=== PATIENT | female | born 1965 | race Caucasian/White ===

== ENCOUNTER 2018-07-05 09:45 | Outpatient (CLI) | payer BC ==
--- NOTE | 2018-07-05 13:42 | MMO ---
Bilateral MAMMO Bilat Screen [facility]. CLINICAL HISTORY: Patient is 53 years old and is seen for screening. The patient has no family history of breast cancer. The patient has no personal history of cancer. VIEWS: The views performed were: bilateral craniocaudal with tomosynthesis and bilateral mediolateral oblique with tomosynthesis. FILMS COMPARED: The present examination has been compared to prior imaging studies performed at [facility] on 07/03/2008, 09/04/2014 and 02/26/2016. MAMMOGRAM FINDINGS: The breasts are heterogeneously dense, which could obscure a lesion on mammography. There are benign appearing calcifications seen in both breasts. There are no suspicious masses, calcifications or areas of architectural distortion. IMPRESSION: CALCIFICATIONS IN BOTH BREASTS ARE BENIGN. A ROUTINE FOLLOW-UP MAMMOGRAM IN 1 YEAR IS RECOMMENDED. THE RESULTS OF THIS EXAM WERE SENT TO THE PATIENT. ACR BI-RADS Category 2 - Benign finding MAMMOGRAPHY NOTE: 1. A negative mammogram report should not delay a biopsy if a dominant of clinically suspicious mass is present. 2. Approximately 10% to 15% of breast cancers are not detected by mammography. 3. Adenosis and dense breasts may obscure an underlying neoplasm.
== END 2018-07-05 09:46 | disposition home or self-care (01) ==
LOC: BICMAMMO 09:45
PROVIDERS: ATTEND Obstetrics & Gynecology
DX: Z12.31 Encounter for screening mammogram for malignant neoplasm of breast (principal)
CPT/HCPCS: 77063; 77067

== ENCOUNTER 2019-11-21 14:48 | Outpatient (CLI) | payer BC ==
--- NOTE | 2019-11-21 16:02 | MMO ---
Bilateral MAMMO Bilat Screen [facility]. CLINICAL HISTORY: Patient is 54 years old and is seen for screening. The patient has no family history of breast cancer. The patient has no personal history of cancer. VIEWS: The views performed were: bilateral craniocaudal with tomosynthesis and bilateral mediolateral oblique with tomosynthesis. FILMS COMPARED: The present examination has been compared to prior imaging studies performed at [facility] on 07/03/2008, 09/04/2014, 02/26/2016 and 07/05/2018. This study has been interpreted with the assistance of computer-aided detection. MAMMOGRAM FINDINGS: The breasts are heterogeneously dense, which could obscure a lesion on mammography. Benign calcifications are noted bilaterally. There are no suspicious masses, suspicious calcifications, or new areas of architectural distortion. IMPRESSION: THERE IS NO MAMMOGRAPHIC EVIDENCE OF MALIGNANCY. A ROUTINE FOLLOW-UP MAMMOGRAM IN 1 YEAR IS RECOMMENDED. THE RESULTS OF THIS EXAM WERE SENT TO THE PATIENT. ACR BI-RADS Category 2 - Benign finding MAMMOGRAPHY NOTE: 1. A negative mammogram report should not delay a biopsy if a dominant of clinically suspicious mass is present. 2. Approximately 10% to 15% of breast cancers are not detected by mammography. 3. Adenosis and dense breasts may obscure an underlying neoplasm. Reported by: RAY MCDOWELL MD Electonically Signed: [id number]
== END 2019-11-21 14:49 | disposition home or self-care (01) ==
LOC: BICMAMMO 14:48
PROVIDERS: ATTEND Obstetrics & Gynecology
DX: Z12.31 Encounter for screening mammogram for malignant neoplasm of breast (principal)
CPT/HCPCS: 77063; 77067

== ENCOUNTER 2020-12-17 12:34 | Outpatient (CLI) | payer BC | END 2020-12-17 12:35 | disposition home or self-care (01) | LOC: BICMAMMO 12:34 | PROVIDERS: ATTEND Obstetrics & Gynecology | DX: Z12.31 Encounter for screening mammogram for malignant neoplasm of breast (principal) | CPT/HCPCS: 77063; 77067 ==

== ENCOUNTER 2021-02-21 07:49 | Inpatient (IN) | payer BC ==
[2021-02-21] MEDS ORDERED: Morphine 4 MG/ML VIAL ONE ×3 (08:21→11:45)
[2021-02-21] MEDS ORDERED: Ondansetron PF 4 MG/2 ML Vial ONE (08:21)
[2021-02-21] MEDS ORDERED: Pantoprazole 40 MG VIAL ONE (08:21)
[2021-02-21 08:53] LABS: #Basophils 0.1 thou/uL (0.0-0.2); #Lymphocytes 1.5 thou/uL (1.20-3.40); #Monocytes 0.5 thou/uL (0.11-0.59); #Neutrophils 6.3 thou/uL (1.40-6.50); %Basophils 0.6 % (0.0-1.0); %Eosinophils 0.4 % (0.0-10.0); %Lymphocytes 18.3 % (21.0-51.0); %Monocytes 5.5 % (0.0-10.0); %Neutrophils 75.3 % (42.0-75.0); Hemoglobin 15.3 g/dL (12.0-16.0); Mean Corpuscular HGB CONC 35.1 g/dL (32.0-36.0); Mean Corpuscular Volume 94.1 fL (78.0-98.0); Mean Platelet Volume 7.8 fL (7.4-10.4); Platelet Count 214 thou/uL (130-400); RBC Distribution Width 11.3 % (11.5-14.5); Red Blood Cell (RBC) Count 4.63 mill/uL (4.20-5.40); White Blood Cell (WBC) Count 8.3 thou/uL (4.8-10.8)
[2021-02-21] MEDS ORDERED: Iopamidol-370 76% 500 ML 1 ML ONE (09:11)
[2021-02-21 09:13] LABS: Albumin 4.7 g/dL (3.5-5.0); Anion Gap 14 mmol/L (10-20); BUN (Urea Nitrogen) 16 mg/dL (9.8-20.1); Bilirubin, Total 0.9 mg/dL (0.2-1.2); Calc. Creatinine Clearance 0 mL/min (70-130); Calcium 10.5 mg/dL (7.8-10.44); Carbon Dioxide 28 mmol/L (22-29); Chloride 102 mmol/L (98-107); Glucose 123 mg/dL (70-105); Potassium 3.9 mmol/L (3.5-5.1); Protein, Total 7.2 g/dL (6.0-8.3); Sodium 140 mmol/L (136-145)
[2021-02-21 09:14] LABS: ALT (SGPT) 18 U/L (8-55); AST (SGOT) 15 U/L (5-34); Alkaline Phosphatase 66 U/L (40-110); CK (CPK) 40 U/L (29-168); Globulin 2.5 g/dL (2.4-3.5); Lipase 40 U/L (8-78)
[2021-02-21] MEDS ORDERED: Acetaminophen 325 MG TAB PO PRN (09:53)
[2021-02-21 10:55] LABS: Bacteria/HPF None Seen HPF (None Seen); Bilirubin Negative (Negative); Blood, Urine Negative (Negative); Clarity Clear (Clear); Glucose, Urine (Dipstick) Normal (Negative); Ketone, Urine Negative (Negative); Leukocyte Negative Leu/uL (Negative); Nitrite Negative (Negative); Protein, Urine (Dipstick) Negative (Neg-Trace); RBC/HPF 0-3 HPF (0-3); Squamous Epithelial 0-3 HPF (0-3); Urobilinogen Normal mg/dL (Less than 2); WBC/HPF 0-3 HPF (0-3); pH, Urine 6.5 (5.0-9.0)
[2021-02-21 10:58] LABS: Specific Gravity, Urine 1.044 (1.002-1.036)
[2021-02-21 10:59] LABS: Urine Culture Reflex No No
[2021-02-21 12:47] VITALS: BMI 24.3
[2021-02-21] MEDS: Dextrose 5 %-0.45 % NaCl 1,000 ML IV SCH ×2 (13:17→20:47)
[2021-02-21] MEDS: Ondansetron PF 4 MG/2 ML Vial IVP PRN ×2 (13:19→19:32)
[2021-02-21] MEDS: Acetaminophen 650 MG Suppository PR PRN ×2 (19:31→20:03)
[2021-02-21] MEDS: Famotidine/PF 20 mg/2ml Vial SLOW IVP SCH (23:48)
[2021-02-22] MEDS: Acetaminophen 650 MG Suppository PR PRN ×2 (01:17→08:15)
[2021-02-22] MEDS: Ondansetron PF 4 MG/2 ML Vial IVP PRN (01:24)
[2021-02-22] MEDS: Morphine 4 MG/ML VIAL SLOW IVP PRN ×3 (03:05→20:49)
[2021-02-22 06:24] LABS: #Eosinphils 0.1 thou/uL (0.0-0.7); #Lymphocytes 1.6 thou/uL (1.20-3.40); #Monocytes 0.7 thou/uL (0.11-0.59); #Neutrophils 6.8 thou/uL (1.40-6.50); %Basophils 0.4 % (0.0-1.0); %Eosinophils 0.6 % (0.0-10.0); %Lymphocytes 17.7 % (21.0-51.0); %Monocytes 7.3 % (0.0-10.0); Hemoglobin 14.5 g/dL (12.0-16.0); Mean Corpuscular HGB CONC 32.9 g/dL (32.0-36.0); Mean Corpuscular Hemoglobin 31.7 pg (27.0-31.0); Mean Corpuscular Volume 96.4 fL (78.0-98.0); Mean Platelet Volume 8.1 fL (7.4-10.4); Platelet Count 193 thou/uL (130-400); RBC Distribution Width 11.3 % (11.5-14.5); Red Blood Cell (RBC) Count 4.58 mill/uL (4.20-5.40); White Blood Cell (WBC) Count 9.2 thou/uL (4.8-10.8)
[2021-02-22 06:50] LABS: Phosphorus 3.5 mg/dL (2.3-4.7)
[2021-02-22 06:51] LABS: ALT (SGPT) 17 U/L (8-55); AST (SGOT) 15 U/L (5-34); Albumin 4.3 g/dL (3.5-5.0); Alkaline Phosphatase 64 U/L (40-110); Anion Gap 14 mmol/L (10-20); BUN (Urea Nitrogen) 12 mg/dL (9.8-20.1); Bilirubin, Total 0.8 mg/dL (0.2-1.2); Calc. Creatinine Clearance 84 mL/min (70-130); Calcium 9.7 mg/dL (7.8-10.44); Carbon Dioxide 28 mmol/L (22-29); Chloride 103 mmol/L (98-107); Globulin 2.5 g/dL (2.4-3.5); Glucose 129 mg/dL (70-105); Magnesium 1.7 mg/dL (1.6-2.6); Protein, Total 6.8 g/dL (6.0-8.3); Sodium 141 mmol/L (136-145)
[2021-02-22] MEDS: Dextrose 5 %-0.45 % NaCl 1,000 ML IV SCH ×2 (07:05→08:23)
[2021-02-22] MEDS: Famotidine/PF 20 mg/2ml Vial SLOW IVP SCH ×2 (08:15→20:46)
[2021-02-22] MEDS: Enoxaparin Sodium 40 MG/0.4 ML SYRINGE SC SCH (08:15)
[2021-02-22] MEDS ORDERED: FLU VACC QS2021-22(6MOS UP)/PF 60 MCG/0.5 ML SYRINGE IM ONE (09:00)
[2021-02-22 12:11] LABS: SARS-CoV-2 PCR by NAA Not Detected (NotDetected)
[2021-02-22] MEDS ORDERED: Fentanyl 100 MCG/2 ML VIAL ONE ×2 (13:04→16:57)
[2021-02-22] MEDS ORDERED: Lidocaine 1% w/Epinephrine 1:100K 20 ML VIAL ONE (13:24)
[2021-02-22] MEDS ORDERED: Bupivacaine 0.25% HCL 30 ML VIAL ONE (13:24)
[2021-02-22] MEDS ORDERED: Midazolam HCl 2 mg/2 ml Vial ONE (14:15)
[2021-02-22] MEDS ORDERED: cefOXitin Sodium/Dextrose 2 GM/50 ML BAG ONE (14:17)
[2021-02-22] MEDS ORDERED: Succinylcholine 200 MG/10 ml SYRINGE FS ONE (14:26)
[2021-02-22] MEDS ORDERED: PROPOFOL 200 MG/20 ML VIAL ONE (14:26)
[2021-02-22] MEDS ORDERED: Glycopyrrolate 0.2 MG/ML 5 ML SYRINGE ONE (14:26)
[2021-02-22] MEDS ORDERED: Ketorolac Tromethamine 30 MG/ML VIAL ONE (14:26)
[2021-02-22] MEDS ORDERED: Ondansetron PF 4 MG/2 ML Vial ONE (14:26)
[2021-02-22] MEDS ORDERED: Rocuronium Bromide 10 MG/ML (10ML VIAL) ONE (14:26)
[2021-02-22] MEDS ORDERED: Dexamethasone 20 MG/5 ML VIAL ONE (14:26)
[2021-02-22] MEDS ORDERED: Meperidine HCl/PF 25 MG/ML VIAL SLOW IVP PRN (16:09)
[2021-02-22] MEDS ORDERED: Promethazine HCl 25 MG/ML VIAL IVPB PRN (16:09)
[2021-02-22] MEDS ORDERED: HYDROmorphone 2 MG/ML VIAL SLOW IVP PRN (16:09)
[2021-02-22] MEDS ORDERED: Ondansetron HCl/PF 4 MG/2 ML Vial IVP PRN (16:09)
[2021-02-22] MEDS ORDERED: Meperidine HCl/PF 25 MG/ML VIAL ONE (16:22)
[2021-02-23] MEDS: Ondansetron PF 4 MG/2 ML Vial IVP PRN ×3 (02:27→17:45)
[2021-02-23] MEDS: Morphine 4 MG/ML VIAL SLOW IVP PRN ×2 (02:28→21:42)
[2021-02-23 07:02] LABS: Hemoglobin 14.5 g/dL (12.0-16.0); Mean Corpuscular HGB CONC 34.7 g/dL (32.0-36.0); Mean Corpuscular Hemoglobin 33.6 pg (27.0-31.0); Mean Corpuscular Volume 96.7 fL (78.0-98.0); Mean Platelet Volume 7.7 fL (7.4-10.4); Platelet Count 156 thou/uL (130-400); RBC Distribution Width 11.3 % (11.5-14.5); Red Blood Cell (RBC) Count 4.33 mill/uL (4.20-5.40); White Blood Cell (WBC) Count 6.8 thou/uL (4.8-10.8)
[2021-02-23 07:08] LABS: Anion Gap 13 mmol/L (10-20); BUN (Urea Nitrogen) 12 mg/dL (9.8-20.1); Calc. Creatinine Clearance 81 mL/min (70-130); Calcium 9.1 mg/dL (7.8-10.44); Carbon Dioxide 29 mmol/L (22-29); Chloride 103 mmol/L (98-107); Glucose 119 mg/dL (70-105); Sodium 141 mmol/L (136-145)
[2021-02-23 07:27] LABS: Band 21 % (5-11); Lymphocytes 16 % (21-51); MDiff Complete? YES; Monocytes 1 % (0-10); Neutrophil 60 % (42-75); Platelet Morphology Comment Appears Adequate; Reactive Lymphocytes 2 % (0-10)
[2021-02-23] MEDS: Famotidine/PF 20 mg/2ml Vial SLOW IVP SCH ×2 (08:21→19:43)
[2021-02-23] MEDS: Enoxaparin Sodium 40 MG/0.4 ML SYRINGE SC SCH (08:21)
[2021-02-23] MEDS ORDERED: Sodium Chloride 0.9% 1,000 ML IV SCH (08:30)
[2021-02-23] MEDS: Dextrose 5 % And 0.9 % NaCl 1,000 ML IV SCH ×2 (08:36→21:47)
[2021-02-23] MEDS ORDERED: Cepastat Lozenges 1 LOZ PO PRN (18:10)
[2021-02-23] MEDS ORDERED: Cepastat Lozenges 1 LOZ PO SCH (18:15)
[2021-02-24] MEDS: Ondansetron PF 4 MG/2 ML Vial IVP PRN (04:29)
[2021-02-24] MEDS: Enoxaparin Sodium 40 MG/0.4 ML SYRINGE SC SCH (08:13)
[2021-02-24] MEDS: Famotidine/PF 20 mg/2ml Vial SLOW IVP SCH ×2 (08:13→20:41)
[2021-02-24] MEDS: Dextrose 5 % And 0.9 % NaCl 1,000 ML IV SCH (17:55)
[2021-02-25 06:46] VITALS: TEMP 98.3
[2021-02-25 07:51] VITALS: BP 97/56
[2021-02-25] MEDS: Enoxaparin Sodium 40 MG/0.4 ML SYRINGE SC SCH (08:35)
[2021-02-25] MEDS: Famotidine/PF 20 mg/2ml Vial SLOW IVP SCH (08:35)
== END 2021-02-25 11:28 | disposition home or self-care (01) | DRG 328 ==
LOC: ERS 07:49 → SUATTDRO 07:49 → T4-B 09:53
PROVIDERS: ADMIT Internal Medicine; ATTEND Internal Medicine
PROC: 0D9670Z Drainage of Stomach with Drainage Device, Via Natural or Artificial Opening (ICD-10-PCS; 2021-02-21)
PROC: 0DC80ZZ Extirpation of Matter from Small Intestine, Open Approach (ICD-10-PCS; principal; 2021-02-22)
PROC: 0DJ04ZZ Inspection of Upper Intestinal Tract, Percutaneous Endoscopic Approach (ICD-10-PCS; 2021-02-22)
PROC: 0DJD4ZZ Inspection of Lower Intestinal Tract, Percutaneous Endoscopic Approach (ICD-10-PCS; 2021-02-22)
DX: T18.3XXA Foreign body in small intestine, initial encounter (principal); Z20.822 Contact with and (suspected) exposure to COVID-19; E83.52 Hypercalcemia; E03.9 Hypothyroidism, unspecified; Z78.0 Asymptomatic menopausal state; Z79.890 Hormone replacement therapy; Z79.899 Other long term (current) drug therapy; X58.XXXA Exposure to other specified factors, initial encounter
CPT/HCPCS: 36415; 74177; 74250; 80048; 80053; 81001; 82550; 83690; 83735; 83880; 84100; 84484; 85025; 93005; 96374; 96375; 96376; C9113; J0694; J1100; J1650; J1885; J2175; J2250; J2270; J2405; J2704; J3010; J7042; Q9967; S0020; S0028; U0003; U0005